=== PATIENT | male | born 1935 | race Caucasian/White ===

== ENCOUNTER → 2018-04-30 | Outpatient (CLI) | payer MEDICARE ==
[2017-03-26 11:00] VITALS: BP 111/68
[~2018-04-30] MED LIST: ACYC200C PO; APIX5TAB PO; ASCO500T3 PO; ATOR10TA60 PO; CALC-56 PO; FLEC50TA PO; LORA0.5T PO; METO-239 PO; METO25TA4 PO; METO37.5 PO; MULT1TAB52 PO; OMEG1CAP6 PO; UBID50CA25 PO
--- NOTE | 2018-04-30 15:23 | CARD ---
MR#: [id number] Date of Study: 04/30/2018 Ordering Physician: SAGAR WILBURN, Referring Physician: SAGAR WILBURN Tech: Lise Langston DIA APPROVED REPORT EXAM: Two-dimensional and M-mode echocardiogram with Doppler and color Doppler. Other Information Quality : AverageHR: 60bpm Rhythm : NSR INDICATION PAF 2D DIMENSIONS RVDd2.8 (2.9-3.5cm)Left Atrium(2D)3.0 (1.6-4.0cm) IVSd1.2 (0.7-1.1cm)Aortic Root(2D)3.1 (2.0-3.7cm) LVDd4.2 (3.9-5.9cm)LVOT Diameter2.0 (1.8-2.4cm) PWd0.8 (0.7-1.1cm)LVDs2.4 (2.5-4.0cm) FS (%) 42.1 %SV57.1 ml LVEF(%)73.5 (>50%) M-Mode DIMENSIONS Left Atrium(MM)3.48 (2.5-4.0cm)Aortic Root3.25 (2.2-3.7cm) Aortic Valve AoV Peak Cameron.128.9cm/sAoV VTI27.2cm AO Peak GR.6.7mmHgLVOT Peak Cameron.98.6cm/s AO Mean GR.3mmHgAVA (VMAX)2.32cm2 JACKY (VTI)2.30cm2 Mitral Valve MV E Bingufxp254.5cm/sMV DECEL [id number] MV A Httmvdxn85.0cm/sE/A Ratio1.2 MV A [id number] Pulmonary Valve PV Peak Umxfsayr04.3cm/s Tricuspid Valve TR P. Uvxurgcc040lk/sRAP DVNEWETI5cpRy TR Peak Gr.31vhUnPQLT99qoTt Pulmonary Vein S1 Grkljzda25.6cm/sD2 Urcjpyrz60.1cm/s PVa [id number] LEFT VENTRICLE The left ventricle is normal size. Proximal septal thickening is noted. The left ventricular systolic function is normal. The Ejection Fraction is 65-70%. There is normal LV segmental wall motion. Trans mitral Doppler flow pattern is Grade II-pseudonormal filling dynamics. RIGHT VENTRICLE The right ventricle is normal size. There is normal right ventricular wall thickness. The right ventr icular systolic function is normal. ATRIA The left atrium size is normal. The right atrium size is normal. The interatrial septum is intact wit h no evidence for an atrial septal defect or patent foramen ovale as noted on 2-D or Doppler imaging. AORTIC VALVE The aortic valve is normal in structure and function. The aortic valve is trileaflet. Doppler and Col or Flow revealed no significant aortic regurgitation. There is no significant aortic valvular stenosi s. MITRAL VALVE The mitral valve is normal in structure and function. There is no evidence of mitral valve prolapse. There is no mitral valve stenosis. Doppler and Color-flow revealed mild mitral regurgitation. TRICUSPID VALVE The tricuspid valve is normal in structure and function. Doppler and Color Flow revealed trace tricus pid regurgitation. The PA pressure was estimated at 26 mmHg. There is no tricuspid valve prolapse or vegetation. There is no tricuspid valve stenosis. PULMONIC VALVE Pulmonic valve not well visualized. GREAT VESSELS The aortic root is normal in size. The ascending aorta is normal in size. The IVC is normal in size a nd collapses >50% with inspiration. PERICARDIAL EFFUSION There is no evidence of significant pericardial effusion. Critical Notification Critical Value: No <Conclusion> The left ventricular systolic function is normal. The Ejection Fraction is 65-70%. There is normal LV segmental wall motion. Transmitral Doppler flow pattern is Grade II-pseudonormal filling dynamics. Mild mitral regurgitation. Trace tricuspid regurgitation. The PA pressure was estimated at 26 mmHg. There is no evidence of significant pericardial effusion. Signed by : Bharath Mendoza, Electronically Approved : 04/30/2018 15:21:41
== END | disposition home or self-care (01) ==
LOC: ECHO 13:58
PROVIDERS: ATTEND Nurse Practitioner
DX: I34.0 Nonrheumatic mitral (valve) insufficiency (principal); I48.0 Paroxysmal atrial fibrillation
CPT/HCPCS: 93306